=== PATIENT | male | born 1950 | race Caucasian/White ===

== ENCOUNTER 2016-11-27 17:11 | Emergency (ER) | payer MEDICARE, BC ==
[2016-11-27] MEDS ORDERED: Ondansetron 4 MG/2 ML SDV IVPUSH ONE (18:16)
[2016-11-27] MEDS ORDERED: Sodium Chloride 0.9% 1,000 ML IV SCH ×2 (18:30→19:45)
--- NOTE | 2016-11-27 18:41 | EDM.PDOC ---
ED HPI GENERAL MEDICAL PROBLEM - General Chief Complaint: Fever Stated Complaint: VOMITING Time Seen by Provider: 11/27/16 18:00 Source of Information: Reports: Patient, Family History Limitations: Reports: No limitations - History of Present Illness INITIAL COMMENTS - FREE TEXT/NARRATIVE: 58-year-old male with amyloidosis receives a regular schedule of chemotherapy, received treatment on Wednesday and Wednesday of this week, today being Wednesday. He and his both had a mild flulike syndrome start 2 days ago, she is improved but he is very nauseous today, feverish and vomiting. No significant diarrhea, no significant abdominal pain, cold symptoms or shortness of breath. He feels "dry" and uncomfortable. His main complaint is the persistent nausea and unable to eat. When he arrived his temperature was 102.0. Onset: gradual (Over the last 12 hours) Location: Reports: generalized Severity: moderate Associated Symptoms: Reports: fever/chills, shortness of breath (Intermittent shortness of breath which he gets from chemotherapy on a regular basis. It is not different from past symptoms). Denies: confusion, chest pain, cough, headaches Generalized Pain Score (Numeric/FACES): 5 - Related Data Allergies Allergy/AdvReac Type Severity Reaction Status Date / Time amoxicillin Allergy Rash Verified 11/27/16 17:42 *beans AdvReac Sweating Uncoded 11/27/16 17:42 Home Meds: Home Meds Aspirin [Adult Low Dose Aspirin EC] 81 mg PO BEDTIME 11/27/16 [History] Cholecalciferol (Vitamin D3) [Vitamin D3] 1,000 unit PO DAILY 11/27/16 [History] Pantoprazole [Protonix] 40 mg PO DAILY 11/27/16 [History] Prochlorperazine [Compazine] 10 mg PO Q6H PRN 11/27/16 [History] Tamsulosin [Tamsulosin 24 Hr] 0.4 mg PO BEDTIME 11/27/16 [History] atorvaSTATin [Lipitor] 40 mg PO BEDTIME 11/27/16 [History] valACYclovir [Valtrex] 500 mg PO BID 11/27/16 [History] Past Medical History HEENT History: Reports: Impaired vision Cardiovascular History: Reports: High cholesterol Respiratory History: Reports: SOB Other Respiratory History: When on Chemo Gastrointestinal History: Reports: Gastritis, GERD Genitourinary History: Reports: Prostate disorder Oncologic (Cancer) History: Reports: Other (see below) Other Oncologic History: amdoilosis - Past Surgical History GI Surgical History: Reports: Colonoscopy Social & Family History - Tobacco Use Smoking Status *Q: Former Smoker Years of Tobacco use: 10 Used Tobacco, but Quit: Yes Month Tobacco Last Used: August 1977 Tobacco Use Comment: quit 40 years ago Second Hand Smoke Exposure: No - Caffeine Use Caffeine Use: Reports: Coffee - Alcohol Use Days Per Week of Alcohol Use: 0 - Recreational Drug Use Recreational Drug Use: No ED ROS GENERAL - Review of Systems Review Of Systems: See Below Constitutional: Reports: fever, chills, malaise HEENT: Reports: Other (Feels his mouth is dry) Respiratory: Reports: shortness of breath. Denies: cough Cardiovascular: Denies: Chest pain, Lightheadedness, Palpitations GI/Abdominal: Reports: Nausea, Vomiting. Denies: Abdominal pain : Reports: no symptoms Musculoskeletal: Reports: no symptoms Skin: Reports: no symptoms Neurological: Reports: no symptoms. Denies: headache Psychiatric: Reports: No symptoms ED EXAM, GENERAL - Physical Exam Exam: See Below Exam Limited By: No limitations General Appearance: alert, no apparent distress (Patient is somewhat uncomfortable but not distressed) Eye Exam: bilateral eye: normal inspection (No jaundice) Throat/Mouth: Other (Somewhat dry mucosa) Respiratory/Chest: no respiratory distress, lungs clear Cardiovascular: regular rate, rhythm. No: tachycardia GI/Abdominal: normal bowel sounds, soft, non tender Extremities: normal inspection. No: pedal edema Neurological: alert, oriented Psychiatric: normal affect, normal mood Skin Exam: Warm, Dry Course - Vital Signs Last Recorded V/S: Last Vital Signs Temp 100.8 F H 11/27/16 21:04 Pulse 76 11/27/16 21:04 Resp 20 11/27/16 21:04 BP 138/75 11/27/16 21:04 Pulse Ox 92 L 11/27/16 21:04 - Orders/Labs/Meds Orders: Active Orders 24 hr Category Date Time Status CULTURE BLOOD [BC] Urgent Lab 11/27/16 18:30 Received CULTURE BLOOD [BC] Urgent Lab 11/27/16 18:40 Received Blood Culture x2 Reflex Set [OM.PC] Urgent Oth 11/27/16 18:16 Ordered Labs: Laboratory Tests 11/27/16 11/27/16 Range/Units 18:30 18:30 WBC 4.2 L (4.5-11.0) K/uL RBC 3.71 L (4.30-5.90) M/uL Hgb 12.9 (12.0-15.0) g/dL Hct 38.4 L (40.0-54.0) % MCV 104 H (80-98) fL MCH 35 H (27-31) pg MCHC 34 (32-36) % Plt Count 66 L (150-400) K/uL Neut % (Auto) 84 H (36-66) % Lymph % (Auto) 7 L (24-44) % [place] % (Auto) 9 H (2-6) % Eos % (Auto) 0 L (2-4) % Baso % (Auto) 0 (0-1) % Sodium 136 L (140-148) mmol/L Potassium 4.1 (3.6-5.2) mmol/L Chloride 103 (100-108) mmol/L Carbon Dioxide 26 (21-32) mmol/L Anion Gap 11.1 (5.0-14.0) mmol/L BUN 26 H D (7-18) mg/dL Creatinine 1.3 (0.8-1.3) mg/dL Est Cr Clr Drug Dosing 57.92 mL/min Estimated GFR (MDRD) 55 L (>60) Glucose 110 H (74-106) mg/dL Calcium 7.4 L (8.5-10.1) mg/dL Total Bilirubin 0.8 D (0.2-1.0) mg/dL AST 40 H D (15-37) U/L ALT 17 (12-78) U/L Alkaline Phosphatase 46 (46-116) U/L Total Protein 4.8 L (6.4-8.2) g/dL Albumin 2.0 L (3.4-5.0) g/dL Globulin 2.8 (2.3-3.5) g/dL Albumin/Globulin Ratio 0.7 L (1.2-2.2) Lipase 194 (73-393) U/L Meds: Medications Discontinued Medications Generic Name Dose Route Start Last Admin Trade Name Freq PRN Reason Stop Dose Admin Acetaminophen 1,000 mg 11/27/16 19:27 11/27/16 19:34 Tylenol Extra Strength PO 11/27/16 19:28 1,000 mg ONETIME ONE Administration Sodium Chloride 1,000 mls @ 1,000 mls/hr 11/27/16 18:30 11/27/16 18:38 Normal Saline IV 1,000 mls/hr ASDIRECTED GEOVANI Administration Levofloxacin/Dextrose 750 mg/ 150 mls @ 100 mls/hr 11/27/16 19:41 11/27/16 19 :46 Premix IV 11/27/16 21:10 100 mls/hr ONETIME ONE Administration Sodium Chloride 1,000 mls @ 250 mls/hr 11/27/16 19:45 11/27/16 19:45 Normal Saline IV 250 mls/hr ASDIRECTED GEOVANI Administration Ondansetron HCl 4 mg 11/27/16 18:16 11/27/16 18:39 Zofran IVPUSH 11/27/16 18:17 4 mg ONETIME ONE Administration - Re-Assessments/Exams Free Text/Narrative Re-Assessment/Exam: 11/27/16 18:41 An IV was started, patient was given 1 L of normal saline along with 4 mg of Zofran IV. A CBC, CMP, lipase and 2 blood cultures were obtained. 11/27/16 21:33 White blood cell count return 4.2, with 86% neutrophils. Calcium was 7.4, otherwise labs were reassuring. Patient was given 1000 mg of acetaminophen by mouth, and oncology was consulted. The recommendation was pending blood cultures give him 750 mg of Levaquin IV and then daily Levaquin. Patient was in the emergency room for 4 hours, his temperature normalized and he had no further vomiting although he still felt "flushed and uncomfortable". He was discharged with 10 additional doses of 500 mg Levaquin to take one daily for at least 7 days, and 5 additional doses of sublingual Zofran. He will return if worsening. Departure - Departure Time of Disposition: 21:48 Disposition: Home, Self-Care 01 Condition: good Clinical Impression: Amyloidosis, Nausea and vomiting Instructions: Nausea, Adult Referrals: PCP,None [Primary Care Provider] - Forms: ED Department Discharge Care Plan Goals: Rest tonight, fluids are important and increase diet as tolerated. Use Zofran for nausea every 4-6 hours as needed, and start daily Levaquin on Wednesday morning and take for at least 7 days. Return at any time if you feel you're worsening or have other concerns. - My Orders Last 24 Hours: My Active Orders 11/27/16 18:16 Blood Culture x2 Reflex Set [OM.PC] Urgent 11/27/16 18:30 CULTURE BLOOD [BC] Urgent 11/27/16 18:40 CULTURE BLOOD [BC] Urgent - Assessment/Plan Last 24 Hours: My Active Orders 11/27/16 18:16 Blood Culture x2 Reflex Set [OM.PC] Urgent 11/27/16 18:30 CULTURE BLOOD [BC] Urgent 11/27/16 18:40 CULTURE BLOOD [BC] Urgent
[2016-11-27] MEDS ORDERED: Acetaminophen 500 MG Tab PO ONE (19:27)
[2016-11-27] MEDS ORDERED: Levofloxacin/Dextrose 5%-Water 750 MG in Premix Bag 1 BAG IV ONE (19:41)
[2016-11-27 21:05] VITALS: BP 138/75
== END 2016-11-27 21:48 | disposition home or self-care (01) ==
LOC: JP.ED 17:11
DX: E85.9 Amyloidosis, unspecified (principal); R11.2 Nausea with vomiting, unspecified; E78.00 Pure hypercholesterolemia, unspecified; K21.9 Gastro-esophageal reflux disease without esophagitis; Z87.891 Personal history of nicotine dependence; Z88.1 Allergy status to other antibiotic agents; Z91.018 Allergy to other foods; Z79.82 Long term (current) use of aspirin; Z79.899 Other long term (current) drug therapy
CPT/HCPCS: 36415; 80053; 83690; 85025; 87040; 96361; 96374; 96375; 99284; A9270; J1956; J2405; J7040

== ENCOUNTER 2016-11-28 12:19 | Inpatient (IN) | payer MEDICARE, BC ==
--- NOTE | 2016-11-28 13:20 | EDM.PDOC ---
ED HISTORY OF PRESENT ILLNESS - General Chief Complaint: Respiratory Problem Stated Complaint: SOB Time Seen by Provider: 11/28/16 13:19 Source: Reports: Patient, Family History Limitations: Reports: No limitations - History of Present Illness INITIAL COMMENTS - FREE TEXT/NARRATIVE: pt has the diagnosis of amyloidosis. He is on chemo therapy for that. he was seen in Er last nite and he was vomiting and dehydrated. He felt alot better after that and he went home on some zoforan. He had an episode today where he got very sob and was quite labored with his breathing for awhile. He is better now and he is sating in the mid 90s. He has no pain with a deep breath. He has not been vomiting any further. Timing/Duration: Reports: Hour(s):, Getting worse Severity: moderate Location, General: Reports: chest Associated Symptoms: Reports: nausea/vomiting, shortness of breath - Related Data Allergies/ADRs: Allergies Allergy/AdvReac Type Severity Reaction Status Date / Time amoxicillin Allergy Rash Verified 11/28/16 17:55 simvastatin Allergy Muscle Verified 11/29/16 08:03 Weakness sulfamethoxazole Allergy Rash Verified 11/29/16 08:00 [From Bactrim] trimethoprim [From Bactrim] Allergy Rash Verified 11/29/16 08:00 *beans AdvReac Sweating Uncoded 11/29/16 08:02 Home Meds: Home Meds Aspirin [Adult Low Dose Aspirin EC] 81 mg PO BEDTIME 11/27/16 [History] Cholecalciferol (Vitamin D3) [Vitamin D3] 1,000 unit PO DAILY 11/27/16 [History] Pantoprazole [Protonix] 40 mg PO DAILY 11/27/16 [History] Prochlorperazine [Compazine] 10 mg PO Q6H PRN 11/27/16 [History] Tamsulosin [Tamsulosin 24 Hr] 0.4 mg PO BEDTIME 11/27/16 [History] atorvaSTATin [Lipitor] 40 mg PO BEDTIME 11/27/16 [History] valACYclovir [Valtrex] 500 mg PO BID 11/27/16 [History] Levofloxacin 500 mg PO DAILY 11/28/16 [History] Ondansetron [Zofran ODT] 0.4 mg SUBAR TID 11/28/16 [History] Past Medical History HEENT History: Reports: Impaired vision Cardiovascular History: Reports: High cholesterol Respiratory History: Reports: SOB Other Respiratory History: When on Chemo Gastrointestinal History: Reports: Gastritis, GERD Genitourinary History: Reports: Prostate disorder Oncologic (Cancer) History: Reports: Other (see below) Other Oncologic History: amdoilosis - Infectious Disease History Infectious Disease History: Reports: Chicken pox, Measles, Mumps - Past Surgical History GI Surgical History: Reports: Colonoscopy Social & Family History - Tobacco Use Smoking Status *Q: Never Smoker Years of Tobacco use: 10 Used Tobacco, but Quit: Yes Month Tobacco Last Used: August 1977 Second Hand Smoke Exposure: No - Caffeine Use Caffeine Use: Reports: Coffee - Alcohol Use Days Per Week of Alcohol Use: 0 - Recreational Drug Use Recreational Drug Use: No ED ROS GENERAL - Review of Systems Review Of Systems: See Below Constitutional: Reports: fever, chills, weakness HEENT: Reports: No symptoms Respiratory: Reports: shortness of breath, cough Cardiovascular: Reports: No symptoms Endocrine: Reports: no symptoms GI/Abdominal: Reports: No symptoms : Reports: no symptoms Musculoskeletal: Reports: no symptoms Skin: Reports: no symptoms Neurological: Reports: no symptoms Psychiatric: Reports: Anxiety ED EXAM, GENERAL - Physical Exam Exam: See Below Free Text/Narrative:: pt has been sob and had an episode today where he was very distressed with his breathing. Exam Limited By: Respiratory distress General Appearance: alert, anxious, mild distress Ears: normal TMs Nose: normal inspection Throat/Mouth: Normal inspection Head: atraumatic Neck: normal inspection Respiratory/Chest: no respiratory distress, other (pt does not feel comfortable with hi breathing. ) Cardiovascular: regular rate, rhythm GI/Abdominal: soft, non tender Rectal (Males) Exam: Deferred Extremities: normal inspection Neurological: alert, oriented, normal cognition Psychiatric: normal affect Course - Vital Signs Last Recorded V/S: Last Vital Signs Temp 38.4 C H 11/29/16 11:12 Pulse 77 11/29/16 11:00 Resp 20 11/29/16 11:00 BP 169/87 H 11/29/16 11:00 Pulse Ox 95 11/29/16 11:00 - Orders/Labs/Meds Labs: Laboratory Tests 11/28/16 11/28/16 11/28/16 Range/Units 13:26 13:26 14:04 WBC 6.2 (4.5-11.0) K/uL RBC 3.42 L (4.30-5.90) M/uL Hgb 11.9 L (12.0-15.0) g/dL Hct 35.0 L (40.0-54.0) % MCV 102 H (80-98) fL MCH 35 H (27-31) pg MCHC 34 (32-36) % Plt Count 18 L* (150-400) K/uL Neut % (Auto) 88 H (36-66) % Lymph % (Auto) 6 L (24-44) % [place] % (Auto) 6 (2-6) % Eos % (Auto) 0 L (2-4) % Baso % (Auto) 0 (0-1) % D-Dimer, Quantitative 2540 H (0.0-400.0) ng/mL Sodium 134 L (140-148) mmol/L Potassium 4.3 (3.6-5.2) mmol/L Chloride 102 (100-108) mmol/L Carbon Dioxide 24 (21-32) mmol/L Anion Gap 12.3 (5.0-14.0) mmol/L BUN 39 H (7-18) mg/dL Creatinine 2.1 H D (0.8-1.3) mg/dL Est Cr Clr Drug Dosing 35.71 mL/min Estimated GFR (MDRD) 32 L (>60) Glucose 104 (74-106) mg/dL Calcium 7.1 L (8.5-10.1) mg/dL Total Bilirubin 0.9 (0.2-1.0) mg/dL AST 109 H D (15-37) U/L ALT 18 (12-78) U/L Alkaline Phosphatase 39 L (46-116) U/L [id number] Pept 967 H (5-125) pg/mL Total Protein 4.5 L (6.4-8.2) g/dL Albumin 1.6 L (3.4-5.0) g/dL Globulin 2.9 (2.3-3.5) g/dL Albumin/Globulin Ratio 0.6 L (1.2-2.2) Meds: Medications Discontinued Medications Generic Name Dose Route Start Last Admin Trade Name Freq PRN Reason Stop Dose Admin Acetaminophen 650 mg 11/28/16 17:53 11/29/16 11:12 Tylenol PO 650 mg Q4H PRN Administration Pain (Mild 1-3)/fever Albuterol 2.5 mg 11/28/16 17:53 Proventil Neb Soln NEB Q4H PRN Shortness Of Breath/wheezing Aspirin 81 mg 11/28/16 21:00 11/28/16 20:54 Halfprin PO 81 mg BEDTIME GEOVANI Administration Atorvastatin Calcium 40 mg 11/28/16 21:00 11/28/16 20:54 Lipitor PO 40 mg BEDTIME GEOVANI Administration Aztreonam Confirm 11/29/16 11:17 11/29/16 11:21 Azactam Administered 11/29/16 11:18 1 gm Dose Administration 1 gm .ROUTE .STK-MED ONE Bisacodyl 5 mg 11/28/16 17:53 Dulcolax PO DAILY PRN Constipation Lidocaine HCl 30 ml/ Al 0 ml 11/29/16 10:42 11/29/16 11:01 Hydroxide/Mg Hydroxide 30 ml/ PO 15 ml Diphenhydramine HCl 75 mg Q4H PRN Administration MOUTH CARE Sodium Chloride 1,000 mls @ 200 mls/hr 11/28/16 14:00 11/28/16 14:18 Normal Saline IV 200 mls/hr ASDIRECTED GEOVANI Administration Cefepime HCl 1 gm/ Sodium 50 mls @ 100 mls/hr 11/28/16 22:00 11/29/16 05:29 Chloride IV 100 mls/hr Q8HR GEOVANI Administration Levofloxacin/Dextrose 750 mg/ 150 mls @ 100 mls/hr 11/29/16 17:00 Premix IV Q48H GEOVANI Sodium Chloride 1,000 mls @ 125 mls/hr 11/28/16 17:53 11/29/16 04:06 Normal Saline IV 125 mls/hr ASDIRECTED GEOVANI Administration Aztreonam/Dextrose 1 gm/ 50 mls @ 100 mls/hr 11/29/16 12:00 11/29/16 12:12 Premix IV Not Given Q12H GEOVANI Sodium Chloride Confirm 11/29/16 11:18 11/29/16 11:22 Normal Saline Administered 11/29/16 11:19 50 ml Dose Administration 50 mls @ as directed .ROUTE .STK-MED ONE Lorazepam 0.5 - 1 mg 11/28/16 17:53 11/29/16 02:04 Ativan IV 1 mg Q4H PRN Administration Nausea/Vomiting Ondansetron HCl 4 mg 11/28/16 14:29 11/28/16 14:41 Zofran IVPUSH 11/28/16 14:30 4 mg ONETIME ONE Administration Ondansetron HCl 4 mg 11/28/16 17:53 Zofran Odt PO Q6H PRN Nausea able to take PO Ondansetron HCl 4 mg 11/28/16 17:53 11/28/16 21:00 Zofran IV 4 mg Q6H PRN Administration Nausea/Vomiting Pantoprazole Sodium 40 mg 11/29/16 07:30 11/29/16 08:42 Protonix PO 40 mg ACBREAKFAST GEOVANI Administration Polyethylene Glycol 17 gm 11/28/16 17:53 Miralax PO DAILY PRN Constipation Prochlorperazine Maleate 10 mg 11/28/16 17:53 Compazine PO Q6H PRN Nausea/Vomiting Tamsulosin HCl 0.4 mg 11/28/16 21:00 11/28/16 20:54 Flomax PO 0.4 mg BEDTIME GEOVANI Administration Valacyclovir HCl 500 mg 11/28/16 21:00 11/29/16 08:42 Valtrex PO 500 mg BID GEOVANI Administration - Re-Assessments/Exams Free Text/Narrative Re-Assessment/Exam: 11/28/16 14:26 pt had o2 sats that were ok. His chest xray looks the same. His platlets have dropped from 66 to 18. His ddimer is up, His bun is up from last nite,. His creatnine is up to 2.5 and last nite was l,3 with a gfr of 55 and today it is 36 12/01/16 08:27 Departure - Departure Time of Disposition: 14:28 Disposition: Admitted As Inpatient 66 Condition: fair Clinical Impression: Dehydration, Thrombocytopenia, Sepsis
[2016-11-28] MEDS ORDERED: Sodium Chloride 0.9% 1,000 ML IV SCH (14:00)
[2016-11-28] MEDS ORDERED: Ondansetron 4 MG/2 ML SDV IVPUSH ONE (14:29)
--- NOTE | 2016-11-28 16:32 | PCM.HP ---
H&P History of Present Illness - General Date of Service: 11/28/16 Admit Problem/Dx: Admission Diagnosis/Problem Admission Diagnosis/Problem Pneumonia Source of Information: Patient, Family, Provider History Limitations: Reports: No limitations - History of Present Illness Initial Comments - Free Text/Narative: Jake presents today with 3 days of not feeling well. Initial symptoms included fatigue as well as a mild dry cough and some nausea. Symptoms have progressed over the past few days and he has had several rounds of nausea and vomiting starting yesterday. He had a little bit of diarrhea yesterday but this seems to have resolved. No complaints of chest pain or abdominal pain. He has noticed fevers and chills at home but did not measure any temperatures. This morning he had an episode of very significant shortness of breath that prompted him to come to the emergency room. This happened while he was at rest and didn't get better without any sort of intervention. He was seen in the emergency room last night with the nausea and vomiting. He was noted to have a fever at the time but no specific source of infection was found. He was given levofloxacin and some IV fluids and went home. He says he has not had anything to eat and very little to drink for the past 2 days. Anything he tries to drink has vomited back up. He is worried this feels very similar to his episode of bacteremia from a couple of years ago. Workup in the emergency room today revealed evidence for acute kidney injury as well as dehydration. His platelets are also down to 18,000. He will be admitted for further workup and treatment. - Related Data Allergies/Adverse Reactions: Allergies Allergy/AdvReac Type Severity Reaction Status Date / Time amoxicillin Allergy Rash Verified 11/27/16 17:42 *beans AdvReac Sweating Uncoded 11/27/16 17:42 Home Medications: Home Meds Aspirin [Adult Low Dose Aspirin EC] 81 mg PO BEDTIME 11/27/16 [History] Cholecalciferol (Vitamin D3) [Vitamin D3] 1,000 unit PO DAILY 11/27/16 [History] Pantoprazole [Protonix] 40 mg PO DAILY 11/27/16 [History] Prochlorperazine [Compazine] 10 mg PO Q6H PRN 11/27/16 [History] Tamsulosin [Tamsulosin 24 Hr] 0.4 mg PO BEDTIME 11/27/16 [History] atorvaSTATin [Lipitor] 40 mg PO BEDTIME 11/27/16 [History] valACYclovir [Valtrex] 500 mg PO BID 11/27/16 [History] Levofloxacin 500 mg PO DAILY 11/28/16 [History] Ondansetron [Zofran ODT] 0.4 mg SUBAR TID 11/28/16 [History] Past Medical History HEENT History: Reports: Impaired vision Cardiovascular History: Reports: High cholesterol Respiratory History: Reports: SOB Other Respiratory History: When on Chemo Gastrointestinal History: Reports: Gastritis, GERD Genitourinary History: Reports: Prostate disorder Oncologic (Cancer) History: Reports: Other (see below) Other Oncologic History: amdoilosis - Infectious Disease History Infectious Disease History: Reports: Chicken pox, Measles, Mumps - Past Surgical History GI Surgical History: Reports: Colonoscopy Social & Family History - Family History Cardiac: Denies: CAD - Tobacco Use Smoking Status *Q: Never Smoker Years of Tobacco use: 10 Used Tobacco, but Quit: Yes Month Tobacco Last Used: August 1977 Second Hand Smoke Exposure: No - Caffeine Use Caffeine Use: Reports: Coffee - Alcohol Use Days Per Week of Alcohol Use: 0 - Recreational Drug Use Recreational Drug Use: No H&P Review of Systems - Review of Systems: Review Of Systems: See Below Free Text/Narrative: A complete 12 point review of systems was obtained. Pertinent positives and negatives are noted in the history of present illness. All other systems were reviewed and were negative except as noted. Exam - Exam Exam: See Below - Vital Signs Vital Signs: Last Vital Signs Temp 37.7 C 11/28/16 14:19 Pulse 70 11/28/16 14:19 Resp 25 H 11/28/16 12:40 BP 153/101 H 11/28/16 14:19 Pulse Ox 97 11/28/16 14:19 Weight: 95 kg - Exam Quality Assessment: No: supplemental oxygen, urinary catheter General: alert, oriented, cooperative. No: mild distress HEENT: Conjunctiva clear, Normal nasal septum. No: Mucosa moist & pink ( dry), Scleral icterus Neck: supple, trachea midline. No: lymphadenopathy, thyromegaly Lungs: Normal respiratory effort, Crackles (Few at the bases), Rhonchi (Both midlung zones). No: Wheezing Cardiovascular: regular rate, regular rhythm, systolic murmur (Left lower sternal border) Abdomen: normal bowel sounds, soft. No: distention, tenderness, mass Back Exam: normal inspection, full range of motion Extremities: normal inspection, normal pulses, other (Elbow, wrist, knee and ankle joints are not warm or tender). No: clubbing, cyanosis, edema Peripheral Pulses: 2+: dorsalis pedis (L), dorsalis pedis (R) Skin: warm, dry, intact, petechia (Right anterior macias) Neuro Extensive - Mental Status: alert, oriented x3, nl response to commands Neuro Extensive - Motor, Sensory, Reflexes: CN II-XII intact. No: dysarthria, abnormal motor, tremor Psychiatric: alert, normal affect - Patient Data Lab Results last 24 hrs: Laboratory Results - last 24 hr 11/28/16 11/28/16 11/28/16 Range/Units 13:26 13:26 14:04 WBC 6.2 (4.5-11.0) K/uL RBC 3.42 L (4.30-5.90) M/uL Hgb 11.9 L (12.0-15.0) g/dL Hct 35.0 L (40.0-54.0) % MCV 102 H (80-98) fL MCH 35 H (27-31) pg MCHC 34 (32-36) % Plt Count 18 L* (150-400) K/uL Neut % (Auto) 88 H (36-66) % Lymph % (Auto) 6 L (24-44) % Barber % (Auto) 6 (2-6) % Eos % (Auto) 0 L (2-4) % Baso % (Auto) 0 (0-1) % D-Dimer, Quantitative 2540 H (0.0-400.0) ng/mL Sodium 134 L (140-148) mmol/L Potassium 4.3 (3.6-5.2) mmol/L Chloride 102 (100-108) mmol/L Carbon Dioxide 24 (21-32) mmol/L Anion Gap 12.3 (5.0-14.0) mmol/L BUN 39 H (7-18) mg/dL Creatinine 2.1 H D (0.8-1.3) mg/dL Est Cr Clr Drug Dosing 35.71 mL/min Estimated GFR (MDRD) 32 L (>60) Glucose 104 (74-106) mg/dL Calcium 7.1 L (8.5-10.1) mg/dL Total Bilirubin 0.9 (0.2-1.0) mg/dL AST 109 H D (15-37) U/L ALT 18 (12-78) U/L Alkaline Phosphatase 39 L (46-116) U/L [id number] Pept 967 H (5-125) pg/mL Total Protein 4.5 L (6.4-8.2) g/dL Albumin 1.6 L (3.4-5.0) g/dL Globulin 2.9 (2.3-3.5) g/dL Albumin/Globulin Ratio 0.6 L (1.2-2.2) Result Diagrams: 11/28/16 13:26 11/28/16 13:26 Imaging Impressions last 24 hrs: Chest x-ray - images personally reviewed - there are scattered patchy infiltrates throughout both lungs. These appear to be similar to previous chest x-ray. Effusion or mass. Heart size is normal. EKG INTERPRETATION EKG Date: 11/28/16 Rhythm: NSR Rate (beats/min): 73 [place]: normal P-wave: present QRS: normal ST-T: normal QT: normal *Q Meaningful Use (ADM) - VTE *Q VTE Criteria *Q: VTE Pharmacological Contraindications *Q: Thrombocytopenia - Stroke *Q Stroke Criteria *Q: - AMI *Q AMI Criteria *Q: - Problem List (1) Acute cystitis with hematuria SNOMED Code(s): 32086652 ICD Code: N30.01 - ACUTE CYSTITIS WITH HEMATURIA Status: Acute Current Visit: Yes (2) Thrombocytopenia SNOMED Code(s): 706092593 ICD Code: D69.6 - THROMBOCYTOPENIA, UNSPECIFIED Status: Acute Current Visit: Yes (3) Acute kidney injury SNOMED Code(s): 47537097 ICD Code: N17.9 - ACUTE KIDNEY FAILURE, UNSPECIFIED Status: Acute Current Visit: Yes (4) Nausea and vomiting SNOMED Code(s): 20684733 ICD Code: R11.2 - NAUSEA WITH VOMITING, UNSPECIFIED Status: Acute Current Visit: No (5) Stem cells transplant status SNOMED Code(s): 000050883 ICD Code: Z94.84 - STEM CELLS TRANSPLANT STATUS Status: Chronic Current Visit: No Problem List Initiated/Reviewed/Updated: Yes Orders Last 24hrs: Active Orders 24 hr Category Date Time Status Patient Status Manage Transfer [TRANSFER] Routine ADT 11/28/16 16:15 Ordered EKG Documentation Completion [RC] ASDIRECTED Care 11/28/16 13:18 Active Chest 2V [CR] Stat Exams 11/28/16 13:19 Taken VL Duplex Lwr Ext Veins Comp [US] Stat Exams 11/28/16 14:09 Taken UA W/MICROSCOPIC [URIN] Urgent Lab 11/28/16 16:20 Uncollected Sodium Chloride 0.9% [Normal Saline] 1,000 ml Med 11/28/16 14:00 Active IV ASDIRECTED Resuscitation Status Routine Resus Stat 11/28/16 16:18 Ordered EKG 12 Lead [EK] Routine Ther 11/28/16 13:18 Ordered Medication Orders Sodium Chloride (Normal Saline) 1,000 mls @ 200 mls/hr IV ASDIRECTED GE[facility] Last Admin: 11/28/16 14:18 Dose: 200 mls/hr Assessment/Plan Comment:: Assessment and plan - Acute cystitis with hematuria - likely source of infection to pulmonary source could be considered as well. He did have chemotherapy recently and this could have altered his immune system leading to the infection. Infection is complicated by nausea with vomiting, significant dehydration and acute kidney injury. He was not safe for outpatient management at this point. There is no evidence for sepsis at this time. -Broad-spectrum antibiotics -IV fluids -Followup urine culture -Followup blood cultures Thrombocytopenia - This raises concern for gram-negative infection and/or bacteremia. No history of similar significant decrease in his platelet levels. Elevated d-dimer could be explained by infection. Fibrinogen is pending but I have a low suspicion for DIC. -Repeat labs in the morning -Followup fibrinogen Shortness of breath - Patient has abnormal chest x-ray at baseline and respiratory infection could be considered though chest x-ray looks the same or even better than previous. He is not hypoxic but does have a cough. D-dimer is elevated and he does have a very tiny nonocclusive clot noted in his left femoral vein but I have a low suspicion for pulmonary embolism or at least clinically significant pulmonary embolism at this time. Is not safe to do a CT angiogram at this time given his poor renal function. Because of his hemodynamic stability I'm going to hold off on anticoagulation given his low platelets and other probable causes since infection certainly could explain the shortness of breath. -Consider CT pulmonary angiogram if kidney function improves -Supplement oxygen if needed Acute kidney injury - creatinine double his usual baseline. Suspect dehydration in the setting of infection. 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 Most recent was within the past week. Maintenance issues - - DVT prophylaxis - mechanical with thrombocytopenia - GI prophylaxis - PPI - Nutrition - Clear liquids - Norris catheter - not indicated CODE STATUS - full treatment without intubation without ACLS Admission justification - This patient will be admitted for inpatient services and is medically appropriate meeting medical necessity for inpatient admission as outlined in my documentation. I reasonably expect the patient will require inpatient services that span a period time over 2 midnights. I reasonably expect this patient to be discharged or transferred within 96 hours [facility]. Disposition - anticipate discharge to home after the hospital stay unless he requires transfer to a higher level of care Primary care physician - [place] [facility] Wil Collado M.D.
[2016-11-28] MEDS ORDERED: Albuterol 0.083% 2.5 MG/3 ML Neb Soln NEB PRN (17:53)
[2016-11-28] MEDS ORDERED: LORazepam 2 MG/ML MDV IV PRN (17:53)
[2016-11-28] MEDS ORDERED: Prochlorperazine 10 MG Tab PO PRN (17:53)
[2016-11-28] MEDS ORDERED: Polyethylene Glycol 3350 Powder 17 GM Packet PO PRN (17:53)
[2016-11-28] MEDS ORDERED: Ondansetron 4 MG Tab.DIS PO PRN (17:53)
[2016-11-28] MEDS ORDERED: Bisacodyl 5 MG Tab PO PRN (17:53)
[2016-11-28] MEDS ORDERED: Acetaminophen 325 MG Tab PO PRN (17:53)
[2016-11-28] MEDS ORDERED: Ondansetron 4 MG/2 ML SDV IV PRN (17:53)
[2016-11-28] MEDS: Sodium Chloride 0.9% 1,000 ML IV SCH (19:56)
[2016-11-28] MEDS: Cefepime 1 GM in Sodium Chloride 0.9% 50 ML IV SCH ×2 (20:49→22:15)
[2016-11-28] MEDS: valACYclovir 1,000 MG Tab PO SCH (20:51)
[2016-11-28] MEDS ORDERED: Aspirin 81 MG Tab.EC PO SCH (21:00)
[2016-11-28] MEDS ORDERED: atorvaSTATin 20 MG Tab PO SCH (21:00)
[2016-11-28] MEDS ORDERED: Tamsulosin 0.4 MG Cap.ER PO SCH (21:00)
[2016-11-29] MEDS: Sodium Chloride 0.9% 1,000 ML IV SCH (04:06)
[2016-11-29] MEDS: Cefepime 1 GM in Sodium Chloride 0.9% 50 ML IV SCH (05:29)
[2016-11-29] MEDS ORDERED: Pantoprazole 40 MG Tab.CR PO SCH (07:30)
[2016-11-29] MEDS: valACYclovir 1,000 MG Tab PO SCH (08:42)
[2016-11-29] MEDS ORDERED: Lidocaine 2% 30 ML, Alum Hydrox/Mag Hydrox/Simeth 30 ML, diphenhydrAMINE 75 MG PO PRN ×3 (10:42)
[2016-11-29 11:10] VITALS: BP 169/87
--- NOTE | 2016-11-29 11:14 | PCM.DCSUM1 ---
Discharge Summary - Hospital Course Brief History: 66 year old male with history of amyloidosis status post stem cell transplant 2 years ago at the [facility] and currently receiving intermittent chemotherapy with carfilzomib who presented with nausea, cough and fevers and was found to have evidence for severe thrombocytopenia, acute kidney injury and probable complicated urinary tract infection. He was admitted to the hospital for management and IV antibiotics. - Discharge Data Discharge Date: 11/29/16 Discharge Disposition: DC/Tfer to Acute Hospital 02 Condition: Stable - Discharge Diagnosis/Problem(s) (1) Acute cystitis with hematuria SNOMED Code(s): 35073073 ICD Code: N30.01 - ACUTE CYSTITIS WITH HEMATURIA Status: Acute Current Visit: Yes (2) Thrombocytopenia SNOMED Code(s): 766314302 ICD Code: D69.6 - THROMBOCYTOPENIA, UNSPECIFIED Status: Acute Current Visit: Yes (3) Acute kidney injury SNOMED Code(s): 51034137 ICD Code: N17.9 - ACUTE KIDNEY FAILURE, UNSPECIFIED Status: Acute Current Visit: Yes (4) Nausea and vomiting SNOMED Code(s): 19688932 ICD Code: R11.2 - NAUSEA WITH VOMITING, UNSPECIFIED Status: Acute Current Visit: No (5) Stem cells transplant status SNOMED Code(s): 439322767 ICD Code: Z94.84 - STEM CELLS TRANSPLANT STATUS Status: Chronic Current Visit: No - Patient Summary/Data Hospital Course: Jake presented to the emergency room on November 28 with fever, nausea, vomiting and an episode of severe shortness of breath. He had not been feeling well for several days prior to presentation and had in fact been seen in the emergency room the night before. Workup in the emergency room revealed evidence for severe thrombocytopenia with a platelet count of 18,000 as well as acute kidney injury with a creatinine of 2.1. As part of the workup a d-dimer was completed and was elevated at more than 2000 but because of his kidney function we could not perform a CT pulmonary angiogram. he was not tachycardic or hypoxic sore concern for pulmonary embolism was low. The lower extremity ultrasound did not reveal evidence for significant clot though he did have a very tiny nonmobile clot in the left femoral vein. Later in the emergency room visit his urine sample was obtained and was strongly suggestive of infection. It was felt that this was likely the cause for the fevers and could explain many of the laboratory findings with a severe gram-negative infection. He was admitted to the hospital and started on broad-spectrum antibiotics with levofloxacin and cefepime. He was given aggressive IV fluids in the emergency room and overnight following hospitalization. Overnight there were no acute issues. There is no evidence for bleeding but unfortunately his platelet level that dropped further down to 13,000. Despite the aggressive IV fluids his creatinine has risen from 2.1 up to 3. He has tolerated his IV antibiotics well but the morning after admission his noted a previous reaction to cefepime. This was promptly discontinued and aztreonam started in its place. This morning he does have a temperature of 38.2 but this has been the highest temperature reading since his presentation to the emergency room yesterday. His heart rate has been in the 70-80 range. Blood pressures have typically been in the 140-150 range but this morning he is slightly more hypertensive with a systolic pressure of 170. He has ongoing difficulty with nausea, especially after he drinks water. He is able to tolerate chicken broth and Jell-O with only minimal nausea. He does not have any abdominal pain. given the significant decline in his platelets and rise in his creatinine I contacted the on-call hematology/oncology physician at [place] in [place]. I am a little concerned that he may have a reaction to his chemotherapy or possibly a severe infection with significant hematologic abnormalities. Given the significant laboratory abnormalities, possible severe infection and kidney injury it was recommended that he be transferred to [place] in [place]. He would benefit from evaluation by hematology/oncology as well as nephrology. Should he need a platelet transfusion he would be radiated platelets which we do not have available here. The plan is for him to be transferred to [place] in [place] for direct admission and subspecialty evaluation. At this time the benefits of travel and direct admission far away the risks. - Patient Instructions Diet: Clear Liquid Diet Activity: As Tolerated Notify Provider of: Fever, Increased Pain, Nausea and/or Vomiting Other/Special Instructions: Transfer to [place] in [place]. Dx: severe thrombocytopenia, acute kidney injury, complicated UTI. Will transfer with his by car to [place] - Discharge Plan Home Medications: Home Meds Aspirin [Adult Low Dose Aspirin EC] 81 mg PO BEDTIME 11/27/16 [History] Cholecalciferol (Vitamin D3) [Vitamin D3] 1,000 unit PO DAILY 11/27/16 [History] Pantoprazole [Protonix] 40 mg PO DAILY 11/27/16 [History] Prochlorperazine [Compazine] 10 mg PO Q6H PRN 11/27/16 [History] Tamsulosin [Tamsulosin 24 Hr] 0.4 mg PO BEDTIME 11/27/16 [History] atorvaSTATin [Lipitor] 40 mg PO BEDTIME 11/27/16 [History] valACYclovir [Valtrex] 500 mg PO BID 11/27/16 [History] Levofloxacin 500 mg PO DAILY 11/28/16 [History] Ondansetron [Zofran ODT] 0.4 mg SUBAR TID 11/28/16 [History] Patient Handouts: Urinary Tract Infection, Adult Referrals: Bhumika Arguello MD [Primary Care Provider] - (f/u as needed after your stay at [place]) - Discharge Summary/Plan Comment DC Time >30 min.: Yes (60 - transfer to [facility] ) - Patient Data Vitals - Most Recent: Last Vital Signs Temp 38.2 C H 11/29/16 07:09 Pulse 84 11/29/16 07:09 Resp 18 11/29/16 07:09 BP 170/105 H 11/29/16 07:09 Pulse Ox 96 11/29/16 07:09 Weight - Most Recent: 95 kg I&O - Last 24 hours: Intake & Output 11/28/16 11/29/16 11/29/16 22:59 06:59 14:59 Intake Total 300 1463 420 Output Total 25 250 Balance 275 1213 420 Lab Results - Last 24 hrs: Laboratory Results - last 24 hr 11/28/16 11/28/16 11/29/16 Range/Units 16:32 17:53 06:03 WBC 5.9 (4.5-11.0) K/uL RBC 3.32 L (4.30-5.90) M/uL Hgb 11.8 L (12.0-15.0) g/dL Hct 34.0 L (40.0-54.0) % MCV 102 H (80-98) fL MCH 36 H (27-31) pg MCHC 35 (32-36) % Plt Count 13 L* (150-400) K/uL Fibrinogen 480.7 H (200.0-400.0) mg/dL Sodium (140-148) mmol/L Potassium (3.6-5.2) mmol/L Chloride (100-108) mmol/L Carbon Dioxide (21-32) mmol/L Anion Gap (5.0-14.0) mmol/L BUN (7-18) mg/dL Creatinine (0.8-1.3) mg/dL Est Cr Clr Drug Dosing Estimated GFR (MDRD) (>60) Glucose (74-106) mg/dL Calcium (8.5-10.1) mg/dL Magnesium (1.8-2.4) mg/dL Total Bilirubin (0.2-1.0) mg/dL AST (15-37) U/L ALT (12-78) U/L Alkaline Phosphatase (46-116) U/L C-Reactive Protein (0.0-0.3) mg/dL Total Protein (6.4-8.2) g/dL Albumin (3.4-5.0) g/dL Globulin (2.3-3.5) g/dL Albumin/Globulin Ratio (1.2-2.2) Urine Color Brown Urine Appearance Turbid Urine pH 6.5 (4.5-8.0) Ur Specific Hope 1.015 (1.008-1.030) Urine Protein 500 H (NEGATIVE) mg/dL Urine Glucose (UA) Normal (NEGATIVE) mg/dL Urine Ketones Negative (NEGATIVE) mg/dL Urine Occult Blood Large (NEGATIVE) Urine Nitrite Positive H (NEGAITVE) Urine Bilirubin Small (NEGATIVE) Urine Urobilinogen 1 (NORMAL) mg/dL Ur Leukocyte Esterase Moderate (NEGATIVE) Urine RBC 5-10 H (0-5) Urine WBC 10-20 H (0-5) Ur Epithelial Cells Few Amorphous Sediment Moderate Urine Bacteria Many Urine Mucus Few Urine Other 11/29/16 Range/Units 06:03 WBC (4.5-11.0) K/uL RBC (4.30-5.90) M/uL Hgb (12.0-15.0) g/dL Hct (40.0-54.0) % MCV (80-98) fL MCH (27-31) pg MCHC (32-36) % Plt Count (150-400) K/uL Fibrinogen (200.0-400.0) mg/dL Sodium 135 L (140-148) mmol/L Potassium 4.3 (3.6-5.2) mmol/L Chloride 105 (100-108) mmol/L Carbon Dioxide 22 (21-32) mmol/L Anion Gap 12.3 (5.0-14.0) mmol/L BUN 51 H (7-18) mg/dL Creatinine 3.0 H (0.8-1.3) mg/dL Est Cr Clr Drug Dosing TNP Estimated GFR (MDRD) 21 L (>60) Glucose 97 (74-106) mg/dL Calcium 7.3 L (8.5-10.1) mg/dL Magnesium 1.6 L (1.8-2.4) mg/dL Total Bilirubin 1.0 (0.2-1.0) mg/dL AST 151 H (15-37) U/L ALT 20 (12-78) U/L Alkaline Phosphatase 35 L (46-116) U/L C-Reactive Protein 7.93 H (0.0-0.3) mg/dL Total Protein 4.3 L (6.4-8.2) g/dL Albumin 1.4 L (3.4-5.0) g/dL Globulin 2.9 (2.3-3.5) g/dL Albumin/Globulin Ratio 0.5 L (1.2-2.2) Urine Color Urine Appearance Urine pH (4.5-8.0) Ur Specific Hope (1.008-1.030) Urine Protein (NEGATIVE) mg/dL Urine Glucose (UA) (NEGATIVE) mg/dL Urine Ketones (NEGATIVE) mg/dL Urine Occult Blood (NEGATIVE) Urine Nitrite (NEGAITVE) Urine Bilirubin (NEGATIVE) Urine Urobilinogen (NORMAL) mg/dL Ur Leukocyte Esterase (NEGATIVE) Urine RBC (0-5) Urine WBC (0-5) Ur Epithelial Cells Amorphous Sediment Urine Bacteria Urine Mucus Urine Other Med Orders - Current: Current Medications Acetaminophen (Tylenol) 650 mg PO Q4H PRN PRN Reason: Pain (Mild 1-3)/fever Albuterol (Proventil Neb Soln) 2.5 mg NEB Q4H PRN PRN Reason: Shortness Of Breath/wheezing Aspirin (Halfprin) 81 mg PO BEDTIME [facility] Last Admin: 11/28/16 20:54 Dose: 81 mg Atorvastatin Calcium (Lipitor) 40 mg PO BEDTIME [facility] Last Admin: 11/28/16 20:54 Dose: 40 mg Bisacodyl (Dulcolax) 5 mg PO DAILY PRN PRN Reason: Constipation Lidocaine HCl 30 ml/ Al Hydroxide/Mg Hydroxide 30 ml/Diphenhydramine HCl 75 mg 0 ml PO Q4H PRN PRN Reason: MOUTH CARE Last Admin: 11/29/16 11:01 Dose: 15 ml Levofloxacin/Dextrose 750 mg/ (Premix) 150 mls @ 100 mls/hr IV Q48H [facility] Sodium Chloride (Normal Saline) 1,000 mls @ 125 mls/hr IV ASDIRECTED [facility] Last Admin: 11/29/16 04:06 Dose: 125 mls/hr Aztreonam/Dextrose 1 gm/ (Premix) 50 mls @ 100 mls/hr IV Q12H [facility] Lorazepam (Ativan) 0.5 - 1 mg IV Q4H PRN PRN Reason: Nausea/Vomiting Last Admin: 11/29/16 02:04 Dose: 1 mg Ondansetron HCl (Zofran Odt) 4 mg PO Q6H PRN PRN Reason: Nausea able to take PO Ondansetron HCl (Zofran) 4 mg IV Q6H PRN PRN Reason: Nausea/Vomiting Last Admin: 11/28/16 21:00 Dose: 4 mg Pantoprazole Sodium (Protonix) 40 mg PO ACBREAKFAST [facility] Last Admin: 11/29/16 08:42 Dose: 40 mg Polyethylene Glycol (Miralax) 17 gm PO DAILY PRN PRN Reason: Constipation Prochlorperazine Maleate (Compazine) 10 mg PO Q6H PRN PRN Reason: Nausea/Vomiting Tamsulosin HCl (Flomax) 0.4 mg PO BEDTIME [facility] Last Admin: 11/28/16 20:54 Dose: 0.4 mg Valacyclovir HCl (Valtrex) 500 mg PO BID [facility] Last Admin: 11/29/16 08:42 Dose: 500 mg Discontinued Medications Sodium Chloride (Normal Saline) 1,000 mls @ 200 mls/hr IV ASDIRECTED [facility] Last Admin: 11/28/16 14:18 Dose: 200 mls/hr Cefepime HCl 1 gm/ Sodium (Chloride) 50 mls @ 100 mls/hr IV Q8HR [facility] Last Admin: 11/29/16 05:29 Dose: 100 mls/hr Ondansetron HCl (Zofran) 4 mg IVPUSH ONETIME ONE Stop: 11/28/16 14:30 Last Admin: 11/28/16 14:41 Dose: 4 mg *Q Meaningful Use (DIS) - VTE *Q VTE Criteria *Q: VTE Pharmacological Contraindications *Q: Thrombocytopenia - Stroke *Q Stroke Criteria *Q: - AMI *Q AMI Criteria *Q:
[2016-11-29] MEDS ORDERED: Sodium Chloride 0.9% 50 ML ONE (11:18)
[2016-11-29] MEDS ORDERED: Aztreonam/Dextrose-Water 1 GM in Premix Bag 1 BAG IV SCH (12:00)
[2016-11-29] MEDS ORDERED: Levofloxacin/Dextrose 5%-Water 750 MG in Premix Bag 1 BAG IV SCH (17:00)
--- NOTE | 2016-11-30 10:10 | CR ---
Chest 2V HISTORY: SOB FINDINGS: The heart and vascular structures are normal in appearance. No infiltrates or effusions ar e demonstrated. The skeletal structures are unremarkable. IMPRESSION: Negative exam.
--- NOTE | 2016-11-30 10:11 | CR ---
Two-view chest Comparison: Previous day. The heart and vascular structures are stable. There are no infiltrates or effusions. Impression: 1. Stable exam.
== END 2016-11-29 12:30 | DRG 690 ==
LOC: JP.ED 12:19 → JP.MS 16:15
PROVIDERS: ADMIT Internal Medicine; ATTEND Internal Medicine
DX: N30.01 Acute cystitis with hematuria (principal); E85.8 Other amyloidosis; N17.9 Acute kidney failure, unspecified; Z94.84 Stem cells transplant status; I82.412 Acute embolism and thrombosis of left femoral vein; E86.0 Dehydration; D69.6 Thrombocytopenia, unspecified; Z87.891 Personal history of nicotine dependence; R79.1 Abnormal coagulation profile; R11.2 Nausea with vomiting, unspecified; R06.02 Shortness of breath; R50.9 Fever, unspecified; K21.9 Gastro-esophageal reflux disease without esophagitis; E78.00 Pure hypercholesterolemia, unspecified; H54.7 Unspecified visual loss; N42.9 Disorder of prostate, unspecified; Z79.82 Long term (current) use of aspirin; Z88.1 Allergy status to other antibiotic agents; Z91.018 Allergy to other foods; Z88.8 Allergy status to other drugs, medicaments and biological substances; Z92.21 Personal history of antineoplastic chemotherapy
CPT/HCPCS: 36415; 71020 ×2; 80053; 83880; 85025; 85379; 93005; 93970; 96361; 96375; 99285; J2405; J7040; 81001; 83735; 85027; 85384; 86140; 87086; 93010; 96365; 96366; 96374; A9270-GY; J0692; J2060; J7050; S0073

== ENCOUNTER 2017-11-01 17:33 | Emergency (ER) | payer OTHER ==
--- NOTE | 2017-11-01 18:28 | EDM.PDOC ---
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 He has no complaints at this time states he will get nauseated with tomato- based products but he is experiencing no abdominal pain he did have a workup for gallbladder disease one year ago of ultrasound and MRCP which showed no gallbladder wall thickening no sign of acute cholecystitis he did have cholelithiasis. He states he is thirsty but has been able to consume liquids and foods okay - Related Data Allergies Allergy/AdvReac Type Severity Reaction Status Date / Time amoxicillin Allergy Rash Verified 11/01/17 18:02 simvastatin Allergy Muscle Verified 11/01/17 18:02 Weakness sulfamethoxazole Allergy Rash Verified 11/01/17 18:02 [From Bactrim] trimethoprim [From Bactrim] Allergy Rash Verified 11/01/17 18:02 *beans AdvReac Sweating Uncoded 11/29/16 08:02 Home Meds: Home Meds Aspirin [Adult Low Dose Aspirin EC] 81 mg PO BEDTIME 11/27/16 [History] Cholecalciferol (Vitamin D3) [Vitamin D3] 1,000 unit PO DAILY 11/27/16 [History] Prochlorperazine [Compazine] 10 mg PO Q6H PRN 11/27/16 [History] Tamsulosin [Tamsulosin 24 Hr] 0.4 mg PO BEDTIME 11/27/16 [History] atorvaSTATin [Lipitor] 40 mg PO BEDTIME 11/27/16 [History] valACYclovir [Valtrex] 500 mg PO ASDIRECTED 11/27/16 [History] Ondansetron [Zofran ODT] 0.4 mg SUBAR TID 11/28/16 [History] Dexamethasone 1 tab PO ASDIRECTED 11/01/17 [History] Famotidine [Pepcid] 1 tab PO DAILY 11/01/17 [History] Pomalidomide [Pomalyst] 1 mg PO ASDIRECTED 11/01/17 [History] Past Medical History HEENT History: Reports: Impaired Vision Cardiovascular History: Reports: High Cholesterol Respiratory History: Reports: SOB Other Respiratory History: When on Chemo Gastrointestinal History: Reports: Gastritis, GERD Genitourinary History: Reports: Chronic Renal Insuffiency, Prostate Disorder, Other (See Below) Other Genitourinary History: ckd got better and patient is not on hemo dialysis as of september of 2017. Oncologic (Cancer) History: Reports: Other (See Below) Other Oncologic History: Agent [place] - Infectious Disease History Infectious Disease History: Reports: Chicken Pox, Measles, Mumps - Past Surgical History GI Surgical History: Reports: Colonoscopy Social & Family History - Tobacco Use Smoking Status *Q: Never Smoker Years of Tobacco use: 10 Used Tobacco, but Quit: Yes Month Tobacco Last Used: August 1977 Second Hand Smoke Exposure: No - Caffeine Use Caffeine Use: Reports: Coffee - Alcohol Use Days Per Week of Alcohol Use: 0 - Recreational Drug Use Recreational Drug Use: No ED ROS GENERAL - Review of Systems Review Of Systems: See Below Constitutional: Reports: No Symptoms HEENT: Reports: No Symptoms Respiratory: Reports: No Symptoms Cardiovascular: Reports: No Symptoms GI/Abdominal: Reports: Nausea (With tomato-based products). Denies: Abdominal Pain, Constipation, Diarrhea : Reports: No Symptoms Musculoskeletal: Reports: No Symptoms, Muscle Pain Neurological: Reports: No Symptoms ED EXAM, GENERAL - Physical Exam Exam: See Below Exam Limited By: No Limitations General Appearance: Alert, WD/WN, No Apparent Distress Respiratory/Chest: No Respiratory Distress GI/Abdominal: Normal Bowel Sounds, Soft, Non-Tender Skin Exam: Warm, Dry, Rash (Consistent with drug rash macular papular) Course - Vital Signs Last Recorded V/S: Last Vital Signs Temp 98.4 F 11/01/17 19:49 Pulse 93 11/01/17 19:49 Resp 16 11/01/17 19:49 BP 156/72 H 11/01/17 19:49 Pulse Ox 96 11/01/17 19:49 - Orders/Labs/Meds Orders: Active Orders 24 hr Category Date Time Status Abdomen Ltd [US] Stat Exams 11/01/17 18:27 Taken Departure - Departure Time of Disposition: 20:12 Disposition: Home, Self-Care 01 Condition: Good Clinical Impression: Elevated liver enzymes - Discharge Information Referrals: PCP,None [Primary Care Provider] - Forms: ED Department Discharge Additional Instructions: Please keep your follow-up appointment with oncology tomorrow, call return to the emergency department worsening of symptoms - My Orders Last 24 Hours: My Active Orders 11/01/17 18:27 Abdomen Ltd [US] Stat - Assessment/Plan Last 24 Hours: My Active Orders 11/01/17 18:27 Abdomen Ltd [US] Stat Plan: Assessment Acuity = acute Site and laterality = elevated liver enzymes and change in creatinine Etiology = unclear etiology Manifestations = none Location of injury = Home Lab values = ultrasound was performed initial report shows contracted gallbladder stone is present but no sign of acute cholecystitis official read radiology is pending Plan He was able to tolerate oral intake of fluids without difficulty, I did review ultrasound report with him he does have follow-up appointment with his oncologist tomorrow This note was dictated using [employer] voice recognition software please call with any questions on syntax or edie.
[2017-11-01 19:50] VITALS: BP 156/72
--- NOTE | 2017-11-02 09:27 | US ---
Ultrasound abdomen Limited. Findings: At the dome of the liver there is a 19 mm echogenic mass. No hypoechoic halo. Liver otherwi se demonstrates no evidence for mass. Pancreas is heterogeneous without definitive evidence for mass. Contracted gallbladder. Gallstone. Patient is not nothing by mouth. Common bile duct 5 mm. Right kid tereso 9.2 cm. No hydronephrosis. IVC is patent. No ascites fluid. Impression: 1. Contracted appearance of the gallbladder. If still concerned for cholecystitis recommend HIDA scan follow-up. There is a gallstone. 2. Echogenic mass within the liver is most suggestive of a hemangioma in the absence of metastatic di sease. Correlate with patient history.
== END 2017-11-01 20:31 | disposition home or self-care (01) ==
LOC: JP.ED 17:33
DX: R74.8 Abnormal levels of other serum enzymes (principal); K80.20 Calculus of gallbladder without cholecystitis without obstruction; E78.00 Pure hypercholesterolemia, unspecified; K21.9 Gastro-esophageal reflux disease without esophagitis; N18.9 Chronic kidney disease, unspecified; Z88.1 Allergy status to other antibiotic agents; Z88.8 Allergy status to other drugs, medicaments and biological substances; Z91.018 Allergy to other foods; Z79.899 Other long term (current) drug therapy; Z87.891 Personal history of nicotine dependence
CPT/HCPCS: 76705; 76705-26; 99283; 99284-25

== ENCOUNTER 2019-04-08 10:04 | Emergency (ER) | payer MEDICARE, BC ==
[2019-04-08 10:37] VITALS: BP 167/83; PULSE 103
--- NOTE | 2019-04-08 11:34 | EDM.PDOC ---
ED HPI GENERAL MEDICAL PROBLEM - General Chief Complaint: General Stated Complaint: SENT FROM CLINIC Time Seen by Provider: 04/08/19 10:47 Source of Information: Reports: Patient, Family, Old Records, RN Notes Reviewed History Limitations: Reports: No Limitations - History of Present Illness INITIAL COMMENTS - FREE TEXT/NARRATIVE: 5-year-old gentleman presents emergency department today complaint of feeling fatigued poor oral intake he does have a known history of renal failure was initially evaluated in clinic since the emergency department for further evaluation his creatinine clinic 5.9 - Related Data Allergies Allergy/AdvReac Type Severity Reaction Status Date / Time amoxicillin Allergy Rash Verified 04/08/19 10:34 simvastatin Allergy Muscle Verified 04/08/19 10:34 Weakness sulfamethoxazole Allergy Rash Verified 04/08/19 10:34 [From Bactrim] trimethoprim [From Bactrim] Allergy Rash Verified 04/08/19 10:34 *beans AdvReac Sweating Uncoded 04/08/19 10:34 Home Meds: Home Meds Aspirin [Adult Low Dose Aspirin EC] 81 mg PO BEDTIME 11/27/16 [History] Cholecalciferol (Vitamin D3) [Vitamin D3] 1,000 unit PO DAILY 11/27/16 [History] Tamsulosin [Tamsulosin 24 Hr] 0.4 mg PO BEDTIME 11/27/16 [History] atorvaSTATin [Lipitor] 40 mg PO BEDTIME 11/27/16 [History] valACYclovir [Valtrex] 500 mg PO ASDIRECTED 11/27/16 [History] dexAMETHasone [Dexamethasone] 1 tab PO ASDIRECTED 11/01/17 [History] Diltiazem [Cardizem] 360 mg PO DAILY 04/08/19 [History] Furosemide 1 tab PO DAILY 04/08/19 [History] Past Medical History HEENT History: Reports: Impaired Vision Cardiovascular History: Reports: High Cholesterol Respiratory History: Reports: SOB Other Respiratory History: When on Chemo Gastrointestinal History: Reports: Gastritis, GERD Genitourinary History: Reports: Chronic Renal Insuffiency, Prostate Disorder, Other (See Below) Other Genitourinary History: ckd got better and patient is not on hemo dialysis as of september of 2017. Oncologic (Cancer) History: Reports: Other (See Below) Other Oncologic History: Agent [place] - Infectious Disease History Infectious Disease History: Reports: Chicken Pox, Measles, Mumps - Past Surgical History GI Surgical History: Reports: Colonoscopy Social & Family History - Tobacco Use Smoking Status *Q: Never Smoker - Caffeine Use Caffeine Use: Reports: Coffee ED ROS GENERAL - Review of Systems Review Of Systems: See Below Constitutional: Reports: Fatigue, Other (Oral intake). Denies: Fever, Chills HEENT: Reports: No Symptoms Respiratory: Reports: No Symptoms Cardiovascular: Reports: No Symptoms GI/Abdominal: Reports: No Symptoms ED EXAM, GENERAL - Physical Exam Exam: See Below Exam Limited By: No Limitations General Appearance: Alert, WD/WN, No Apparent Distress Respiratory/Chest: No Respiratory Distress, Lungs Clear, Normal Breath Sounds, No Accessory Muscle Use, Chest Non-Tender Cardiovascular: Regular Rate, Rhythm, No Murmur GI/Abdominal: Soft, Non-Tender Course - Vital Signs Last Recorded V/S: Last Vital Signs Temp 97.3 F 04/08/19 10:45 Pulse 103 H 04/08/19 10:45 Resp 11 L 04/08/19 10:45 BP 167/83 H 04/08/19 10:45 Pulse Ox 97 04/08/19 10:45 Departure - Departure Time of Disposition: 11:41 Disposition: DC/Tfer to Acute Hospital 02 Condition: Fair Clinical Impression: End stage renal disease - Discharge Information Referrals: PCP,None [Primary Care Provider] - Forms: ED Department Discharge - Assessment/Plan Plan: Assessment Acuity = acute on chronic Site and laterality = renal failure Etiology = amyloid Manifestations = fatigue Location of injury = Home Lab values = hemoglobin low at 8.8 consistent neck chromic anemia creatinine elevated 5.9 consistent with chronic renal failure state G5 Plan Called and discussed the case with manager application Dr. Wick section hand helper [facility] 11:15 , also spoke with hospitalist on-call Dr. Haynes at [phone] he'll be transferred via private vehicle This note was dictated using [employer] voice recognition software please call with any questions on syntax or grammar.
== END 2019-04-08 12:00 ==
LOC: JP.ED 10:04
DX: N17.9 Acute kidney failure, unspecified (principal); N18.6 End stage renal disease; Z79.899 Other long term (current) drug therapy; Z88.1 Allergy status to other antibiotic agents; Z88.2 Allergy status to sulfonamides; Z88.8 Allergy status to other drugs, medicaments and biological substances; Z79.82 Long term (current) use of aspirin
CPT/HCPCS: 99284; 99285